=== PATIENT | female | born 1935 | race Caucasian/White ===

== ENCOUNTER 2018-11-08 14:01 | Emergency (ER) | payer MEDICARE ==
[2018-11-08 14:32] VITALS: BP 134/62
[2018-11-08] MEDS ORDERED: Acetaminophen/HYDROcodone 325-5 MG Tab PO ONE (14:42)
--- NOTE | 2018-11-08 14:46 | EDM.PDOC ---
ED HPI GENERAL MEDICAL PROBLEM - General Chief Complaint: Lower Extremity Injury/Pain Stated Complaint: RIGHT KNEE PAIN Time Seen by Provider: 11/08/18 14:30 Source of Information: Reports: Patient History Limitations: Reports: No Limitations - History of Present Illness INITIAL COMMENTS - FREE TEXT/NARRATIVE: 83 yo female here with R knee pain for the past week. Is worse after slipping a little while walking last night. Is painful with attempting to bend or fully extend that knee. Has not seen her provider. Onset: Sudden Onset Date: 11/01/18 Duration: Week(s): (1), Waxing/Waning Location: Reports: Lower Extremity, Right Quality: Reports: Sharp Severity: Moderate Improves with: Reports: Rest Worsens with: Reports: Movement Context: Reports: Trauma Associated Symptoms: Reports: No Other Symptoms Treatments PROFESSIONAL HEALTHCARE REPRESENTATIVE: Reports: Other (see below) (none) right;knee Pain Score (Numeric/FACES): 10 - Related Data Allergies Allergy/AdvReac Type Severity Reaction Status Date / Time sulindac [From Clinoril] Allergy Rash Verified 11/08/18 14:36 codeine AdvReac Dizziness Verified 11/08/18 14:36 hydromorphone HCl AdvReac Dizziness Verified 11/08/18 14:36 [From Dilaudid] Home Meds: Home Meds Aspirin 325 mg PO DAILY 08/29/14 [History] Omeprazole 20 mg PO DAILY 08/29/14 [History] Lisinopril 10 mg PO DAILY 06/28/15 [History] Multivit-Min/FA/Lycopene/Lut [Centrum Silver Tablet] 1 tab PO DAILY 06/28/15 [ History] Vitamin B6-pyridOXINE [Vitamin B6] 200 mg PO DAILY 07/18/15 [History] Fluticasone Propionate [Flonase] 2 spray CYNTHIA DAILY 07/28/15 [History] Acetaminophen/HYDROcodone [[facility] 325-5 MG] 1 - 2 tab PO Q6H PRN #20 tab [Rx] Past Medical History HEENT History: Reports: Allergic Rhinitis, Impaired Vision Cardiovascular History: Reports: Hypertension, SOB on Exertion Respiratory History: Reports: Bronchitis, Recurrent, Pneumonia, Recurrent Gastrointestinal History: Reports: Colon Polyp, Hemorrhoids Genitourinary History: Reports: UTI, Recurrent MANAGER ERP History: Reports: Musculoskeletal History: Reports: Arthritis, Back Pain, Chronic, Fibromyalgia, Neck Pain, Chronic, Osteoarthritis Neurological History: Reports: Vertigo Psychiatric History: Reports: Anxiety Endocrine/Metabolic History: Reports: Hypothyroidism, Obesity/BMI 30+ Immunologic History: Reports: Other (See Below) Other Immunologic History: lymes Oncologic (Cancer) History: Reports: Breast - Infectious Disease History Infectious Disease History: Reports: Chicken Pox, Herpes, Measles, Mumps - Past Surgical History Female Surgical History: Reports: Breast Biopsy, Tubal Ligation Oncologic Surgical History: Reports: Biopsy of Breast Review of Systems - Review of Systems Review Of Systems: See Below Constitutional: Reports: No Symptoms Musculoskeletal: Reports: Joint Pain (knee swelling right), Joint Swelling (R knee) Skin: Reports: No Symptoms Neurological: Reports: No Symptoms ED EXAM, GENERAL - Physical Exam Exam: See Below Exam Limited By: No Limitations General Appearance: Alert, WD/WN, No Apparent Distress Extremities: Pedal Edema (R knee swollen), Joint Swelling (r knee), Other ( medial jt line tenderness R knee without ligamentous laxity.). No: Redness Neurological: Alert, Oriented, CN II-XII Intact, Normal Cognition, No Motor/ Sensory Deficits Psychiatric: Normal Affect, Normal Mood Skin Exam: Warm, Dry, Intact, Normal Color, No Rash Course - Vital Signs Text/Narrative:: Was fitted with a knee immobilizer and given a walker. Last Recorded V/S: Last Vital Signs Temp 36.6 C 11/08/18 14:35 Pulse 68 11/08/18 14:35 Resp 12 11/08/18 14:35 BP 134/62 11/08/18 14:35 Pulse Ox 99 11/08/18 14:35 Departure - Departure Time of Disposition: 14:55 Disposition: Home, Self-Care 01 Condition: Fair Clinical Impression: Acute meniscal tear of right knee Qualifiers: Encounter type: initial encounter Qualified Code(s): S83.206A - Unspecified tear of unspecified meniscus, current injury, right knee, initial encounter - Discharge Information *PRESCRIPTION DRUG MONITORING PROGRAM REVIEWED*: No *COPY OF PRESCRIPTION DRUG MONITORING REPORT IN PATIENT FILIBERTO: No Referrals: Luis Morgan Sr, MD [Primary Care Provider] - Additional Instructions: Use the immobilizer and walker for getting around. Take ibuprofen and/or [facility]side as needed for pain relief. Recheck with your doctor in the next week or so.
== END 2018-11-08 15:07 | disposition home or self-care (01) ==
LOC: JP.ED 14:01
DX: S83.206A Unspecified tear of unspecified meniscus, current injury, right knee, initial encounter (principal); I10 Essential (primary) hypertension; E03.9 Hypothyroidism, unspecified; W01.0XXA Fall on same level from slipping, tripping and stumbling without subsequent striking against object, initial encounter; Z88.8 Allergy status to other drugs, medicaments and biological substances; Z79.82 Long term (current) use of aspirin; Z79.899 Other long term (current) drug therapy
CPT/HCPCS: 99283; A9270

== ENCOUNTER 2018-12-23 08:36 | Day surgery (SDC) | payer MEDICARE ==
[~2018-12-23 08:36] MED LIST: Dexamethasone 4 MG/ML SDV ONE; Glycopyrrolate 0.2 MG/ML 5 ML MDV ONE; Neostigmine Methylsulfate 1 MG/ML 5 ML Syringe ONE; Ondansetron 4 MG/2 ML SDV ONE; Propofol 200 MG/20 ML SDV ONE; Rocuronium 50 MG/5 ML Vial ONE; fentaNYL 250 MCG/5 ML SDV ONE
[2018-12-23] MEDS ORDERED: Nozin Nasal Sanitizer NASBOTH ONE (09:15)
[2018-12-23] MEDS ORDERED: Bupivacaine 0.25% 10 ML SDV ONE (09:27)
[2018-12-23] MEDS ORDERED: Lactated Ringers 1,000 ML IV SCH (09:45)
[2018-12-23] MEDS ORDERED: ceFAZolin 1 GM in Premix Bag 1 BAG IV ONE (10:00)
[2018-12-23] MEDS ORDERED: Ondansetron 4 MG/2 ML SDV IVPUSH ONE (12:16)
[2018-12-23] MEDS ORDERED: Acetaminophen/HYDROcodone 325-5 MG Tab PO ONE (12:37)
[2018-12-23 13:55] VITALS: BP 121/65
--- NOTE | 2018-12-30 20:57 | OR ---
DATE OF PROCEDURE: 12/23/2018 PREOPERATIVE DIAGNOSIS: Medial meniscus tear, right knee. POSTOPERATIVE DIAGNOSES: 1. Posterior horn medial meniscus tear. 2. Posterior horn lateral meniscus tear. 3. 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 PROCEDURE PERFORMED: 1. Arthroscopy of right knee with partial medial meniscectomy. 2. Partial lateral meniscectomy. 3. Chondroplasty, medial femoral condyle and patella. ANESTHESIA: General. INDICATIONS: Celsa is an 83-year-old female with a history of persistent right knee pain. She is having difficulty with weightbearing, pivoting, twisting. It is interfering with activities of daily living. Imaging reveals minimal degenerative change on x-ray with well-preserved joint spaces. MRI reveals a tear of the medial meniscus and probable degenerative tear of free edge of the lateral meniscus with no significant loss of articular surface or evidence of subchondral edema. She is, therefore, taken to the operating room for arthroscopy and debridement of the medial meniscus and evaluation of the rest of the joint. Risks, benefits, potential complications of the procedure were discussed. DESCRIPTION OF PROCEDURE: After adequate anesthesia was obtained, patient was placed supine with a tourniquet about the right upper thigh. Right leg was prepped and draped in a sterile fashion. Leg was exsanguinated and tourniquet inflated to 250 mmHg. A standard inferior medial and lateral portals were established. The scope was introduced and the patellofemoral joint was evaluated. This revealed grade 2 changes on the dome of the patella with mild fibrillation. The scope was swept into the medial compartment. Grade 3 changes of the medial femoral condyle were noted with an articular flap detached laterally and maintained on a hinge medially. This lesion measured approximately 5 x 6 mm. Shaver was introduced and the flap was debrided and the base of the lesion was debrided of all loose fragments. This did not extend down to the subchondral bone in full thickness, but had a couple of small areas which were close to full thickness. Medial meniscus revealed a macerated complex tear of the posterior horn consistent with degenerative tear. This was debrided back to a stable margin with a combination of a punch basket and shaver. All loose fragments were removed. Intercondylar notch revealed intact ACL and PCL. Lateral compartment revealed degenerative tear of the posterior horn of the lateral meniscus. This was again debrided with a combination of punch basket and shaver. All loose fragments were removed and this was debrided back to a stable margin. The majority of the meniscus was intact. The articular surface in the lateral compartment was intact. Knee was inspected once again. No other abnormalities were identified. Knee was drained. Scope was withdrawn. Port sites were closed in standard fashion, infiltrated with Marcaine and a sterile dressing was applied. The patient tolerated the procedure very well. There were no complications. She was taken from the operating room in stable condition. Luis Sims MD /[id number]
== END 2018-12-23 14:15 | disposition home or self-care (01) ==
LOC: JP.SDS 08:36
PROVIDERS: ATTEND Specialist
DX: M23.351 Other meniscus derangements, posterior horn of lateral meniscus, right knee (principal); S83.231A Complex tear of medial meniscus, current injury, right knee, initial encounter; I10 Essential (primary) hypertension; J44.9 Chronic obstructive pulmonary disease, unspecified; K21.9 Gastro-esophageal reflux disease without esophagitis; M50.30 Other cervical disc degeneration, unspecified cervical region; R73.03 Prediabetes; X58.XXXA Exposure to other specified factors, initial encounter; Z88.5 Allergy status to narcotic agent; Z88.6 Allergy status to analgesic agent; Z79.899 Other long term (current) drug therapy
CPT/HCPCS: 29880; A9270; J0690; J1100; J2405; J2704; J2710; J3010; J3490; J7120

== ENCOUNTER 2022-08-15 06:27 | Day surgery (SDC) | payer MEDICARE ==
[2022-08-15] MEDS ORDERED: Sodium Chloride 0.9% 10 ML Syringe FLUSH PRN (07:00)
[2022-08-15 08:05] VITALS: BP 146/77; PULSE 80
== END 2022-08-15 08:12 | disposition home or self-care (01) ==
LOC: JP.SDS 06:27
PROVIDERS: ATTEND Ophthalmology
DX: H26.9 Unspecified cataract (principal); I10 Essential (primary) hypertension; K21.9 Gastro-esophageal reflux disease without esophagitis; Z88.6 Allergy status to analgesic agent; Z88.5 Allergy status to narcotic agent; Z79.899 Other long term (current) drug therapy
CPT/HCPCS: 66984; J3490

== ENCOUNTER 2023-04-14 05:43 | Day surgery (SDC) | payer MEDICARE ==
[2023-04-14] MEDS ORDERED: Lactated Ringers 1,000 ML IV SCH (06:30)
[2023-04-14] MEDS ORDERED: Bupivacaine 0.5% 30 ML SDV ONE ×2 (06:44→07:18)
[2023-04-14] MEDS ORDERED: ceFAZolin 1 GM in Premix Bag 1 BAG IV ONE (07:00)
[2023-04-14] MEDS ORDERED: Nozin Nasal Sanitizer NASBOTH ONE (07:00)
[2023-04-14] MEDS ORDERED: fentaNYL 100 MCG/2 ML SDV ONE ×2 (07:16→08:46)
[2023-04-14] MEDS ORDERED: Propofol 200 MG/20 ML SDV ONE ×2 (07:16→08:31)
[2023-04-14] MEDS ORDERED: Midazolam 1 MG/ML 2 ML SDV ONE (07:16)
[2023-04-14 11:25] VITALS: BP 145/68; PULSE 56
== END 2023-04-14 11:29 | disposition home or self-care (01) ==
LOC: JP.SDS 05:43
PROVIDERS: ATTEND Specialist
DX: M75.111 Incomplete rotator cuff tear or rupture of right shoulder, not specified as traumatic (principal); S46.111A Strain of muscle, fascia and tendon of long head of biceps, right arm, initial encounter; S43.401A Unspecified sprain of right shoulder joint, initial encounter; M94.211 Chondromalacia, right shoulder; I10 Essential (primary) hypertension; K21.9 Gastro-esophageal reflux disease without esophagitis; M85.80 Other specified disorders of bone density and structure, unspecified site; J44.9 Chronic obstructive pulmonary disease, unspecified; E11.9 Type 2 diabetes mellitus without complications; E66.9 Obesity, unspecified; Z79.899 Other long term (current) drug therapy; Z85.3 Personal history of malignant neoplasm of breast; Z88.5 Allergy status to narcotic agent; Z88.8 Allergy status to other drugs, medicaments and biological substances; Z68.33 Body mass index [BMI] 33.0-33.9, adult
CPT/HCPCS: 29827; A9270; C1713; J0690; J2250; J2704; J3010; J3490; J7120

== ENCOUNTER 2023-10-15 15:00 | Emergency (ER) | payer MEDICARE ==
[2023-10-15 16:52] LABS: BASOPHILS ABSOLUTE AUTO 0.03 K/uL (0.00-0.10); BASOPHILS PERCENT AUTO 0.3 % (0.1-1.3); HEMATOCRIT 43.7 % (34.3-46.0); HEMOGLOBIN 15.4 g/dL (11.2-15.5); IMMATURE GRAN ABSOLUTE AUTO 0.05 K/uL (0.00-0.23); IMMATURE GRAN PERCENT AUTO 0.5 % (0.0-0.7); LYMPHOCYTES ABSOLUTE AUTO 0.82 K/uL (0.8-3.3); LYMPHOCYTES PERCENT AUTO 8.3 % (11.4-47.7); MEAN CORPUSCULAR HEMOGLOBIN 29.7 pg (31.6-35.5); MEAN CORPUSCULAR HGB CONC 35.2 g/dL (31.6-35.5); MEAN CORPUSCULAR VOLUME 84.4 fL (81.4-99.0); MONOCYTES PERCENT AUTO 9.1 % (3.3-12.6); NEUTROPHILS PERCENT AUTO 80.8 % (40.0-78.1); PLATELET COUNT,PLT 349 K/uL (130-375); RED BLOOD CELL COUNT 5.18 M/uL (3.77-5.24); WHITE BLOOD CELL COUNT,WBC 9.9 K/uL (3.2-11.0)
[2023-10-15 17:01] LABS: APPEARANCE,URINE CLOUDY (CLEAR); BILIRUBIN,URINE NEGATIVE (NEGATIVE); COLOR,URINE YELLOW (YELLOW); GLUCOSE,URINE NEGATIVE (NEGATIVE); KETONES,URINE NEGATIVE (NEGATIVE); LEUKOCYTE ESTERASE,URINE SMALL (NEGATIVE); NITRITE,URINE NEGATIVE (NEGATIVE); OCCULT BLOOD,URINE NEGATIVE (NEGATIVE); PH,URINE 5.5 (5.0-8.0); PROTEIN,URINE NEGATIVE (NEGATIVE); UROBILINOGEN,URINE 0.2 EU/dL (0.2-1.0)
[2023-10-15 17:10] LABS: AMORPHOUS SEDIMENT,URINE NOT SEEN; BACTERIA,URINE FEW; EPITHELIAL CELLS,URINE FEW; MUCUS,URINE MODERATE; RBC,URINE 0-5 (0-5)
[2023-10-15 17:12] LABS: ALANINE AMINOTRANSFERASE,ALT 26 U/L (12-78); ALBUMIN 3.9 g/dL (3.4-5.0); ALKALINE PHOSPHATASE 87 U/L (46-116); ANION GAP 16.2 mmol/L (5.0-14.0); ASPARTATE AMNIOTRANSFERASE,AST 14 U/L (15-37); BILIRUBIN TOTAL 0.3 mg/dL (0.2-1.0); BLOOD UREA NITROGEN,BUN 37 mg/dL (7-18); CALCIUM 9.5 mg/dL (8.5-10.1); CARBON DIOXIDE,CO2 22 mmol/L (21-32); CHLORIDE,CL 103 mmol/L (100-108); CREATININE 1.4 mg/dL (0.6-1.0); EST CRCL DRUG DOSING (CG) 20.72 mL/min; ESTIMATED GFR 37 mL/min (>60); GLUCOSE RANDOM 92 mg/dL (74-106); POTASSIUM,K 4.2 mmol/L (3.6-5.2); PROTEIN TOTAL,TP 7.7 g/dL (6.4-8.2); SODIUM,NA 137 mmol/L (140-148)
[2023-10-15 17:19] VITALS: BP 137/57; PULSE 83
[2023-10-15] MEDS: Ketorolac 30 MG/ML SDV IM ONE (17:20)
[2023-10-15] MEDS: methylPREDNISolone Sodium Succinate 125 MG/2 ML SDV IVPUSH ONE (18:51)
[2023-10-15] MEDS: Sodium Chloride 0.9% 1,000 ML IV ONE (18:51)
== END 2023-10-15 20:38 | disposition home or self-care (01) ==
LOC: JP.ED 15:00
DX: M54.41 Lumbago with sciatica, right side (principal); M54.42 Lumbago with sciatica, left side; I10 Essential (primary) hypertension; E66.9 Obesity, unspecified; Z88.8 Allergy status to other drugs, medicaments and biological substances; Z88.5 Allergy status to narcotic agent; Z79.51 Long term (current) use of inhaled steroids; Z79.899 Other long term (current) drug therapy; Z86.16 Personal history of COVID-19; Z68.35 Body mass index [BMI] 35.0-35.9, adult
CPT/HCPCS: 36415; 80053; 81001; 85025; 96361; 96372; 96374; 99283; J1885; J2930; J7030

== ENCOUNTER 2023-10-17 10:09 | Emergency (ER) | payer MEDICARE ==
[2023-10-17] MEDS: Ketorolac 30 MG/ML SDV IM ONE (11:03)
[2023-10-17] MEDS ORDERED: methylPREDNISolone Acetate 80 MG/ML SDV ONE (11:30)
[2023-10-17] MEDS ORDERED: Bupivacaine 0.25% 10 ML SDV ONE (11:30)
[2023-10-17 11:49] VITALS: BP 122/44; PULSE 61
== END 2023-10-17 13:26 | disposition home or self-care (01) ==
LOC: JP.ED 10:09
DX: M54.41 Lumbago with sciatica, right side (principal); I10 Essential (primary) hypertension; E66.9 Obesity, unspecified; Z88.6 Allergy status to analgesic agent; Z88.5 Allergy status to narcotic agent; Z86.19 Personal history of other infectious and parasitic diseases; Z86.16 Personal history of COVID-19; Z68.34 Body mass index [BMI] 34.0-34.9, adult
CPT/HCPCS: 96372; 99283; J1040; J1885; J3490